=== PATIENT | female | born 1950 | race Caucasian/White ===

== ENCOUNTER 2016-09-12 21:15 | Observation (INO) | payer MEDICARE ==
[~2016-09-12] VITALS: Ht 157.5 cm; Wt 102.3 kg
--- NOTE | ~2016-09-12 | CATH ---
Cardiac Diagnostic + PCI Report Demographics Patient Name CHRIS Bruno Gender Female Date of 1950 Age 66 year(s) Patient Number [id number] Date of Study 09/13/2016 Visit Number [id number] Room Number 418 Corporate ID Ht 157.48 cm Wt 102.06 kg Accession Number [id number] BSA 2.01 m kg/m Referring Rocky TAN Primary Physician Physician Edu Performing Rocky TAN Secondary Physician Physician Edu Diagnostic Rocky TAN Assisting Physician Physician Edu Interventional Rocky TAN Physician It Risk And Assurance Senior Manager Physician Edu Findings and Conclusions Diagnostic Findings and Conclusion Non-obstructive disease of LAD and circumflex. 40% proximal, 60% mid lesion of the RCA. Normal LVEDP. Diagnostic Recommendations IFR of RCA. Interventional Findings and Conclusion Non hemodynamically significant lesion of the mid RCA lesion. Interventional Recommendations Medical mangement. Procedure Description The patient was brought to the diagnostic cardiac catheterization-EP laboratory in the fasting, non-sedated state. Informed consent was obtained in the written and verbal form after the risks and benefits were explained. The patient had no further questions and agreed to proceed. The planned puncture-incision site(s) were shaved and prepped with ChloraPrep and draped in the usual sterile manner. Conscious sedation, supplemental oxygen, and pain control medications were delivered by a registered nurse under physician guidance. Surface ECG rhythm, blood pressure measurement, and pulse oximetry were monitored throughout the procedure. Arterial access. The right radial access site was infiltrated with lidocaine. The radial vessel was entered with the Seldinger technique. A 6F sheath was advanced into the vessel and used for catheter placement. Radial cocktail administered per protocol. Selective left coronary angiography. A TIG catheter was advanced into the left coronary vessel ostium under Fluoroscopic guidance. Contrast was injected by hand. Images were obtained in multiple projections. Selective right coronary angiography. A TIG catheter was advanced into the right coronary vessel ostium under fluoroscopic guidance. Contrast was injected by hand. Images were obtained in multiple projections. Left heart catheterization. A catheter was advanced across the aortic valve to the left ventricle under fluoroscopic guidance. Resting hemodynamics were obtained. Arterial artery hemostasis was achieved with a TR band using 11cc air. The patient was transferred to a regular nursing floor via cart accompanied by a nurse. The patient left the laboratory in stable condition. Diagnostic Cath Status: Urgent Procedure Procedure Type Diagnostic procedure:Angiography:, Coronary Angios w/[facility] PCI procedure:Additional Imaging:, FFR/iFR:, Initial Vessel Indications: Family history of coronary artery disease, Chest pain, Hypertension and Hyperlipidemia. The procedure was explained in detail to the patient. Risks, complications and alternative treatments were reviewed. Written consent was obtained. Medications Reviewed with Patient prior to Procedure. Complications: No Complication. Angiographic Findings Dominance: Right Cardiac Arteries and Lesion Findings LMCA: Normal (0% Stenosis).short and normal. LAD: Abnormal. Lesion on Prox LAD: Distal subsection.30% stenosis . Lesion on Prox LAD: Ostial.40% stenosis . LCx: Abnormal. Lesion on 2nd Ob Yanet: Proximal subsection.40% stenosis . RCA: Abnormal. Lesion on Prox RCA: 40% stenosis . Lesion on Mid RCA: 60% stenosis . Devices used - VERRATA. Number of passes: 1. Coronary Tree Procedure Data Procedure Date Date: 09/13/2016Start: 10:17 AM Entry Locations - Percutaneous access was performed through the Right Radial artery (Primary location). A 6 Fr sheath was inserted. Hemostasis was successfully obtained using a TR band. Procedure Medications Order and Administration + + +---------+-------+ !Time !Medication !Dosage !Route ! + + +---------+-------+ !09/13/2016 !Versed !1 mg !I.V. ! !10:25 AM ! ! ! ! + + +---------+-------+ !09/13/2016 !Fentanyl !25 mcg !I.V. ! !10:25 AM ! ! ! ! + + +---------+-------+ !09/13/2016 !Sodium Chloride !10 ml !I.V. ! !10:25 AM ! ! ! ! + + +---------+-------+ !09/13/2016 !Versed !1 mg !I.V. ! !10:41 AM ! ! ! ! + + +---------+-------+ !09/13/2016 !Fentanyl !25 mcg !I.V. ! !10:41 AM ! ! ! ! + + +---------+-------+ !09/13/2016 !Oxygen !2 l/min !NC ! !10:44 AM ! ! ! ! + + +---------+-------+ !09/13/2016 !SF Radial Cocktail: 200mcg Nitro, 2.5 mg! !I.A. ! !10:45 AM !Verapamil, 5000u Heparin ! ! ! + + +---------+-------+ !09/13/2016 !Heparin (ACC_3) !3000 !I.V. ! !10:56 AM ! !units ! ! + + +---------+-------+ Devices Used - A6F TIG CATHETER. Comments: coronary angiograms. - ACATH 6FR PIG 145 110CM CATHETERwas used for:LV Pressures. - AGUIDE CATHETER 6FR FR 4.0 100CMwas used for:Right coronary angiography. Contrast Material - Isovue 52901 ml Fluoroscopy Time: Diagnostic: 3:06 minutes. Total: 3:06 minutes. Fluoroscopy Dose: Diagnostic: 721 mGy. Total: 721 mGy. Estimated Blood Loss: 10 ml. Medical History Performed Procedures and Imaging Results - Stress testing with SPECT MPIwas performed on 09/11/2016. Results were: Positive. Risk/Extent of ischemia was: Intermediate risk. Allergies - Latex. Risk Factors The patient risk factors include:obesity, hypercholesterolemia, treated hypertension, family history of premature CAD, last creatinine: 0.9 mg/dl, creatinine clearance: 96.39 ml/min and dyslipidemia. Admission Data Admission Date: 09/12/2016 Admission Time: 10:23 PM Insurance Payors: Medicare. Clinical Evaluation Leading to Procedure Diagnosed on 09/13/2016 12:00 AM. - The patient's CAD presentation was assessed as: Unstable angina. - The patient's anginal syndrome during the past two weeks was assessed as: Class III according to the [place] Cardiovascular Society Classification System (CCS). Hemodynamics Condition: Rest O2 Consumption: Estimated: 181.15Heart Rate: 63 bpm Pressures (mmHg) +-----+ + !Site !Pressure ! +-----+ + !AO !87/51 (67) ! +-----+ + !AO !93/55 (72) ! +-----+ + !LV !107/-1 ,2 ! +-----+ + !AO !114/57 (81) ! +-----+ + !LV !110/0 ,5 ! +-----+ + Valve Gradients and Areas + +---------+---------+---------+ +---------+ + !Valve !Peak !Mean !Area !Index !Flow !Source ! + +---------+---------+---------+ +---------+ + !Aortic !0 !0 ! ! ! ! ! + +---------+---------+---------+ +---------+ + !Aortic !0 !0 ! ! ! ! ! + +---------+---------+---------+ +---------+ + Shunts Oxygen Values O2 Capacity 155.04 O2 Consumption 181.15 Discharge Data Discharge Date: 09/13/2016 Hospital Status: Inpatient Signatures
--- NOTE | 2016-09-14 00:39 | ER ---
ADMIT: 09/12/2016 RM/LOC: 418 [facility] MR#: [id number] [id number] [facility] [address] [place] [id number] [address]OO[address]Z [address] [place] [address] Emergency Room Report SEX: F AGE: 66 : 1950 DATE: 09/12/2016 TIME: 2115 hours. Please refer to my T-sheet for complete H and P. HISTORY OF PRESENT ILLNESS: Briefly, the patient is a 66-year-old, who comes in with chest pain started this afternoon, kind of wax and wane, substernal up to her shoulder in a left arm. Said she has been tired today. She had a stress test yesterday that she was told was positive. She has high blood pressure, high cholesterol, and a family history of coronary artery disease. She has never had a cardiac cath, here for evaluation. PHYSICAL EXAMINATION: VITAL SIGNS: Stable. Blood pressure 141/87, saturating 98%. GENERAL: No acute distress. HEENT: Grossly normal. LUNGS: Clear. HEART: Regular. ABDOMEN: Soft. EXTREMITIES: Trace edema. EMERGENCY DEPARTMENT COURSE: EKG was sinus rhythm, rate 70, no changes. Chest x-ray, negative. Cardiac enzymes, negative. Chemistries normal. CBC normal except hemoglobin 11.4. She was pain free, had aspirin, an inch of nitroglycerin paste. I talked to Dr. Hardy, he will admit to the hospital. ASSESSMENT: Chest pain with multiple risk factors as described and a recent positive stress test she was told. PLAN: Admit to the hospital. Matt Sr MD/ sarah JOB #: [id number] CC: Saleem Hardy MD, Attending Physician Varun Hernandez DO, Family Physician
[2016-09-14] MEDS ORDERED: MUCUS RELIEF400 MG PO (14:15)
[2016-09-14] MEDS ORDERED: BENADRYL-DPS25 MG PO (14:15)
[2016-09-14] MEDS ORDERED: ASPIRIN EC81 MG PO (14:15)
[2016-09-14] MEDS ORDERED: VIBRAMYCIN-DPS100 M2 PO (14:15)
[2016-09-14] MEDS ORDERED: LIPITOR DPS20 MG PO (14:16)
[2016-09-14] MEDS ORDERED: PROTONIX40 MG PO (14:16)
[2016-09-14] MEDS ORDERED: VALSARTAN-HCTZ1 EAC1 PO (14:16)
[2016-09-14] MEDS ORDERED: METOPROLOL TART25 MG PO (14:16)
--- NOTE | 2016-09-22 15:10 | HP ---
ADMIT: 09/12/2016 RM/LOC: 418 [facility] MR#: [id number] [address] [id number] ANABEL PEREZ [address] [place] [address] History and Physical SEX: F AGE: 66 : 1950 DATE OF SERVICE: REASON FOR ADMISSION: Chest pain and abnormal stress test. Mehreen Grijalva RN, scribing for Edu Hidalgo MD HISTORY OF PRESENT ILLNESS: Anabel is a pleasant 66-year-old female, who presented to [facility] emergency room late yesterday with complaints of chest discomfort. She follows regularly with Dr. Hardy in [place]. She has no prior history of coronary artery disease but does have family history a brother with a stent and father with an UT and dying at the age of 66. She has history of hypertension and untreated hyperlipidemia with cholesterol levels on September 04, 2016; with an LDL of 205, total cholesterol of 291, triglycerides 167, and HDL of 53. She had complaints of chest discomfort and had stress test on the which showed medium-sized area of moderate anterior wall ischemia. Echocardiogram was performed, showing normal ejection fraction of 60% to 65% with [id number] LVH and no significant wall motion abnormalities. She was scheduled to follow up with Dr. Hardy on the to discuss her testing results and further evaluation as well as medication treatment for her hyperlipidemia. She does have a latex allergy. Other than that, she denies any complaints with any medications. Anabel presented to [facility] emergency room with complaints of chest discomfort. She states that yesterday afternoon around 3:00, at rest, she had increased fatigue as well as describing a dull ache in the mid chest radiating into her left shoulder and neck. She was also short of breath. She denies any lightheadedness or palpitations. Denies any nausea or diaphoresis. This continued on and did not resolve despite resting and so she had her daughter bring her to the emergency room. Cardiac enzymes are negative x3. Her lab work is essentially normal. EKG did not show any significant ST-T changes. She was admitted for her ongoing chest discomfort with abnormal stress test. Last night, she did have 2 further episodes of chest pressure across her left chest lasting about 5 minutes. She does describe increased discomfort and fullness in her chest with deep breathing. Her symptoms have been going off and on for about a month. She did not have any arrhythmias on telemetry. PAST MEDICAL HISTORY: Hypertension, hyperlipidemia, seasonal allergies. PAST SURGICAL HISTORY: Includes right carpal tunnel release. ALLERGIES: SHE IS ALLERGIC TO LATEX. MEDICATIONS: Current medications include: 1. Valsartan 160/25. 2. Aspirin 81 mg daily. 3. Doxycycline 100 b.i.d. 4. Benadryl 25 daily p.o. FAMILY HISTORY: Positive family history of brother having a myocardial ADMIT: 09/12/2016 RM/LOC: 418 [facility] MR#: [id number] [address] [place] [id number] ANABEL PEREZ [address] [place] [address] History and Physical SEX: F AGE: 66 : 1950 infarction with history of stenting. Father at the age of 66 from suspected myocardial infarction. Sister had valvular disease. Positive family history of diabetes in another sister and her brother and positive family history of stroke in 3rd sister. SOCIAL HISTORY: Anabel is , she has 5 children. She drinks about a cup of coffee a day. She denies any special diet, alcohol, drug, or tobacco use. REVIEW OF SYSTEMS: GENERAL: Reports increased fatigue over the last few days. Denies any recent fever, chills, or sweats, but she has lost about 15 pounds. She is working on weight loss through diet changes. EYES: Denies double vision, blurred vision, cataracts, or glaucoma. THROAT, MOUTH, and EARS: Sinus congestion with seasonal allergies. Recent cough with that as well. Denies hearing loss. PULMONARY: Denies cough, sputum production, asthma, emphysema or bronchitis. Denies snoring loudly, wakefulness at night, or fatigue upon awakening. GASTROINTESTINAL: Denies heartburn or difficulty swallowing. No change in bowel habits. Denies dark or bloody stools. No history of ulcers, hiatal hernia, or gallbladder or liver disease. GENITOURINARY: Denies dysuria, hematuria, nocturia, urinary tract infection, or kidney stones. Denies history of renal insufficiency or failure. MUSCULOSKELETAL: Denies history of arthritis or gout. Denies muscle or joint pains. ENDOCRINE: Denies history of thyroid dysfunction or diabetes. HEMATOLOGIC: Denies history of anemia, easy bruising, or cancer. NEUROLOGIC: Denies chronic headaches, dizziness, syncope, stroke, seizures or numbness or tingling. PSYCHIATRIC: Denies history of mental illness or feelings of depression. PHYSICAL EXAMINATION: VITAL SIGNS: Blood pressure 119/59, heart rate 66, respirations 16, temperature 97.1, and oxygenation 95% on room. SKIN: [place], warm and dry. EYES: Sclerae clear. No xanthelasmas. ENT: Oral mucosa is pink and moist. No jugular venous distention or carotid bruits. CHEST: Respirations are even and unlabored. Lungs are clear to auscultation. HEART: Regular rate and rhythm. Normal S1, S2. No murmurs, rubs or gallops. ABDOMEN: Soft and nontender. MUSCULOSKELETAL: Gait is normal. EXTREMITIES: No cyanosis or clubbing. 1+ pitting edema bilaterally lower extremity. PSYCHIATRIC: Alert and oriented. Mood and affect are appropriate. DIAGNOSTIC DATA: Chest x-ray on 09/13 showed no acute process. Sodium 138, potassium 4.1, BUN 16, creatinine 0.9, glucose 95, magnesium 2.1. CK 46, MB 0.9. Troponin less than 0.015 on third set. All three sets are negative. White blood cell count 6.1, hemoglobin 11.4, hematocrit 34.5, platelets 301. ADMIT: 09/12/2016 RM/LOC: 418 [facility] MR#: [id number] 2620 [facility] [address] [place] [id number] ANABEL PEREZ [address] [place] [address] History and Physical SEX: F AGE: 66 : 1950 ASSESSMENT/PLAN: 1. Unstable angina. Chest pain occurring at rest. She had intermediate risk stress test on the 11 of September. I recommend proceeding with left heart catheterization for further evaluation of her symptoms and possible treatment. I discussed with her risks and benefits of the procedure with risks including, but not limited to bleeding, infection, vessel damage, reaction to contrast dye, kidney dysfunction due to contrast dye, stroke, myocardial infarction, rarely loss of life. The patient states understanding and wishes to proceed. I will proceed this morning as she has been n.p.o. 2. Hyperlipidemia. Her LDL was greater than 200. I will start Lipitor 40 mg p.o. at bedtime at this point. 3. Family history of coronary artery disease. 4. Hypertension. I will amend my plan once cardiac catheterization has been completed. I have read and agree with the documentation that has been completed regarding this visit. By signing this record, I attest that the documentation was completed in my physical presence and is an accurate record of the encounter. Mehreen Grijalva RN / Edu Hidalgo MD / sarah JOB #: [id number] CC: Saleem Hardy, Attending Physician Varun Hernandez, Family Physician Varun Hernandez,
== END 2016-09-13 15:53 | disposition home or self-care (01) ==
LOC: ER 21:15 → 4PCU 22:23
PROVIDERS: ADMIT Internal Medicine
DX: I25.110 Atherosclerotic heart disease of native coronary artery with unstable angina pectoris (principal); I10 Essential (primary) hypertension; E78.5 Hyperlipidemia, unspecified; J30.2 Other seasonal allergic rhinitis; Z91.040 Latex allergy status; Z79.82 Long term (current) use of aspirin; Z79.899 Other long term (current) drug therapy